=== PATIENT | male | born 1940 | race Caucasian/White ===

== ENCOUNTER 2017-05-04 09:54 | Outpatient (CLI) | payer MEDICARE, BC ==
--- NOTE | 2017-05-04 13:23 | MRI Report ---
EXAM: RIGHT SHOULDER MRI WITHOUT CONTRAST EXAM DATE: 05/04/2017 10:35 AM. CLINICAL HISTORY: Right shoulder pain. COMPARISON: None. TECHNIQUE: Multiplanar, multisequence T1-weighted and fluid-sensitive sequences of the shoulder witho ut contrast. Other: None. 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 The coracoacromial and coracoclavicular ligaments are intact. Generous amount of bursal fluid is pres ent. Glenohumeral Region: No subluxation. Small joint effusion. Some debris is seen in the bursa and also in the joint. The articular cartilage is unremarkable. The glenohumeral ligaments and joint capsule a re unremarkable. Bone Marrow: No fracture, marrow edema or bone lesions. Labrum: The labrum is unremarkable on this nonarthrographic study. Musculature/Rotator Cuff: Full-thickness tear of the supraspinatus tendon and proximal retraction wit h a 2.5 cm focal fluid-filled gap. Partial-thickness tear superior surface of the subscapularis. Infr aspinatus and teres minor are normal. No significant fatty atrophy or edema muscle bundles the rotato r cuff. Biceps Tendon: The long head of the biceps tendon and biceps te are intact. Other: The subcutaneous tissues are unremarkable. IMPRESSION: 1. Type II unipartite undersurface osseous acromion shape. AC joint is moderately osteoarthritic. Gen erous amount of bursal fluid is present. Small joint effusion and some debris also seen in the joint. 2. Full-thickness tear and proximal retraction supraspinatus tendon measuring about 2.5 cm with a foc al fluid-filled gap. Partial-thickness tear superior aspect of the subscapularis. Remainder of the ro tator cuff appears unremarkable. 3. Long head of biceps, biceps labral attachment, bones and articular surfaces appear unremarkable. [facility]CULOSKE[facility] SECTION Referring Provider Line: [phone] SITE ID: [id number]
== END 2017-05-04 09:55 | disposition home or self-care (01) ==
LOC: DI 09:54
PROVIDERS: ATTEND Nurse Practitioner Family
DX: M19.011 Primary osteoarthritis, right shoulder (principal); M75.101 Unspecified rotator cuff tear or rupture of right shoulder, not specified as traumatic

== ENCOUNTER 2020-04-11 07:13 | Outpatient (CLI) | payer MEDICARE, BC ==
--- NOTE | 2020-04-11 09:16 | MRI Report ---
PROCEDURE: Hip LT W/O INDICATIONS: PAIN IN LT HIP TECHNIQUE: Noncontrast coronal T1 spin echo and STIR through the bony pelvis. Coronal and axial T2 fast spin ec ho with fat saturation, sagittal T1 spin echo, and oblique axial T2 fast spin echo with fat saturatio n through the hip. COMPARISON: None. FINDINGS: Image quality: Excellent. Bones and joints: Bone marrow of the pelvic ring and proximal femurs show normal signal throughout. No intraosseous lesions or fractures. No avascular necrosis of the femoral heads. Mild degenerative changes are seen in the included portion of the lower lumbar spine with mild disc desiccation and fa cet hypertrophy. Tendons: The gluteus medius and minimus tendons appear intact, without associated muscle atrophy. T he iliopsoas tendon appears intact, without adjacent bursal fluid collections. There is a partial in trasubstance tear at the origin of the left hamstring tendon. Labrum and cartilage: There is a nondisplaced tearing of the posterior and posterosuperior acetabular labrum. There is partial-thickness cartilage thinning and irregularity at the superolateral aspect o f the head. Small marginal osteophytes are seen in the lateral aspect of the acetabulum. The alpha an gle of the femur is within normal limits at less than 55 degrees. Soft tissues: Mild edema is seen in the muscles surrounding the left hip including the obturator int ernus and externus muscles as well as the left abductor brevis and longus muscles, consistent with lo w-grade muscle strains. Low-grade muscle strain is also seen in the proximal aspect of the contralate ral right abductor longus muscle. The proximal sciatic neurovascular bundle appears normal adjacent t o the hamstring tendons. No free pelvic fluid. Bladder wall thickness is normal. Genitourinary str uctures and bowel loops appear normal where visualized. IMPRESSION: 1. Low-grade intrasubstance tear of the proximal imaging tendons at the origin. 2. Mild muscular edema surrounding the left hip including the obturator internus and externus muscle s as well as the left abductor brevis and longus muscles is consistent with low-grade muscle strains. 3. Nondisplaced tearing of the left posterior and posterosuperior labrum, which may be degenerative. 4. Mild degenerative changes in the left hip. Reviewed by: Abraham Daily MD on 04/11/2020 9:15 AM PDT Approved by: Abraham Daily MD on 04/11/2020 9:15 AM PDT Station ID: [id number]
== END 2020-04-11 07:14 | disposition home or self-care (01) ==
LOC: DI 07:13
PROVIDERS: ATTEND Nurse Practitioner Family
DX: M16.12 Unilateral primary osteoarthritis, left hip (principal); S76.012A Strain of muscle, fascia and tendon of left hip, initial encounter; S73.192A Other sprain of left hip, initial encounter

== ENCOUNTER 2021-01-28 12:54 | Outpatient (CLI) | payer MEDICARE, BC ==
--- NOTE | 2021-01-28 19:03 | XRAY Report ---
PROCEDURE: Shoulder 3 View LT INDICATIONS: PX IN LT SHOULDER TECHNIQUE: 3 views of the shoulder were acquired. COMPARISON: None. FINDINGS: Bones: No fractures or dislocations. No suspicious bony lesions. Visualized ribs appear intact. S evere acromioclavicular and glenohumeral degenerative narrowing. There is a high riding appearance of the humeral head. Soft tissues: No suspicious soft tissue calcifications. IMPRESSION: 1. Severe acromioclavicular and glenohumeral degenerative narrowing. 2. High riding humeral head which can be seen with rotator cuff pathology. Reviewed by: Evy Ray MD on 01/28/2021 6:02 PM MARY Approved by: Evy Ray MD on 01/28/2021 6:02 PM MARY Station ID: [id number]
== END 2021-01-28 12:55 | disposition home or self-care (01) ==
LOC: DI.S 12:54
PROVIDERS: ATTEND Nurse Practitioner Family
DX: M19.012 Primary osteoarthritis, left shoulder (principal); R93.6 Abnormal findings on diagnostic imaging of limbs